=== PATIENT | male | born 1980 | race African-American/Black ===

== ENCOUNTER → 2025-07-12 | Outpatient (CLI) | payer OTHER, SELFPAY ==
--- NOTE | 2025-07-12 | XR_ITS ---
Examination: Knee, left, 3 views Technique: Knee AP, lateral, oblique 3 views Date and time of exam: July 12, 2025, 1223 hours INDICATIONS: Left knee pain months. FINDINGS: No fracture or dislocation Minimal tricompartment osteoarthritis. IMPRESSION: Minimal tricompartment osteoarthritis
== END | disposition home or self-care (01) ==
PROVIDERS: Referring Provider Nurse Practitioner; Visit Provider Nurse Practitioner
DX: M17.12 Unilateral primary osteoarthritis, left knee (principal)
CPT/HCPCS: 73562